=== PATIENT | female | born 1980 | race Caucasian/White ===

== ENCOUNTER → 2018-10-29 | Outpatient (CLI) | payer BC ==
[~2018-10-29] MED LIST: BIRTH CONTROL
== END | disposition home or self-care (01) ==
LOC: LAB 16:42 → LAB SHORT 16:42
PROVIDERS: Nurse Practitioner Family
DX: Z01.419 Encounter for gynecological examination (general) (routine) without abnormal findings (principal)
CPT/HCPCS: G0123

== ENCOUNTER 2024-01-23 06:13 | Day surgery (SDC) | payer BC ==
[~2024-01-23] VITALS: Ht 162.6 cm; Wt 80.1 kg
[2024-01-23] MEDS ORDERED: FentaNYL Citrate 50 MCG/ML 2 ML Injection ONE (06:51)
[2024-01-23] MEDS ORDERED: Midazolam HCl 1MG / ML 2ML Vial ONE (06:51)
[2024-01-23] MEDS ORDERED: propofoL 40 ML IV ONE (06:51)
[2024-01-23] MEDS ORDERED: Rocuronium Bromide 10 MG/ML 5ML Injection IV ONE (06:55)
[2024-01-23] MEDS ORDERED: EPINEPhrine HCl 1 MG/ML 1ML Amp ONE (06:56)
[2024-01-23] MEDS ORDERED: Bupivacaine HCl 0.25% 30 ML Injection ONE (06:56)
[2024-01-23] MEDS ORDERED: Dexamethasone Sod Phos 10 MG/ML 1ML VIAL ONE ×2 (06:56→07:58)
[2024-01-23] MEDS ORDERED: Lidocaine 1%-Epineph 1:100000 20 ML MDV ONE (06:57)
[2024-01-23] MEDS ORDERED: CeFAZolin Sodium 2,000 MG VIAL ONE (07:13)
[2024-01-23] MEDS ORDERED: NS 50 ML IV ONE (07:13)
[2024-01-23] MEDS ORDERED: Lactated Ringer's 1,000 ML IV ONE ×3 (07:14→09:10)
[2024-01-23] MEDS ORDERED: Tranexamic Acid 100 ML IV ONE (07:15)
[2024-01-23] MEDS ORDERED: Ondansetron HCl 2 MG / ML 2ML Vial ONE ×2 (08:16→10:19)
[2024-01-23] MEDS ORDERED: Sugammadex Sodium 200 MG/2ML SDV (100 MG/ML) ONE (08:58)
[2024-01-23 09:37] VITALS: BP 96/59
== END 2024-01-23 11:09 | disposition home or self-care (01) ==
LOC: ORSCSDS 06:13
PROVIDERS: Orthopaedic Surgery Sports Medicine
PROC: 0RNJ4ZZ Release Right Shoulder Joint, Percutaneous Endoscopic Approach (ICD-10-PCS; principal; 2024-01-23 07:30)
PROC: 0LQ14ZZ Repair Right Shoulder Tendon, Percutaneous Endoscopic Approach (ICD-10-PCS; principal; 2024-01-23 07:30)
DX: M75.31 Calcific tendinitis of right shoulder (principal); M75.111 Incomplete rotator cuff tear or rupture of right shoulder, not specified as traumatic; M25.512 Pain in left shoulder
CPT/HCPCS: C1713; J0171; J0690; J1100; J2250; J2405; J2704; J3010; J7120